=== PATIENT | female | born 1980 | race Caucasian/White ===

== ENCOUNTER 2018-12-30 06:31 | Day surgery (SDC) | payer OTHER, BC ==
[2018-12-30] MEDS ORDERED: CEFAZOLIN 2 GM/50 ML (PMX) 50 ML IVPB (07:00)
[2018-12-30] MEDS: SOD CHLORIDE 0.9% 1,000 ML IV (07:23)
[2018-12-30] MEDS ORDERED: MIDAZOLAM 1 MG/ML 2 ML INJ (07:48)
[2018-12-30] MEDS ORDERED: DESFLURANE 15 MIN (07:48)
[2018-12-30] MEDS ORDERED: FENTAnyl 50 MCG/ML VIAL (07:58)
[2018-12-30] MEDS ORDERED: CEFAZOLIN 1 GM INJ (08:00)
[2018-12-30] MEDS ORDERED: FAMOTIDINE 20 MG INJ (08:00)
[2018-12-30] MEDS ORDERED: LIDOCAINE 2% (SDV) 5 ML INJ (08:00)
[2018-12-30] MEDS ORDERED: ONDANSETRON 4 MG INJ (08:00)
[2018-12-30] MEDS ORDERED: METOCLOPRAMIDE 10 MG INJ (08:00)
[2018-12-30] MEDS ORDERED: SUCCINYLCHOLINE CHLORIDE 100 MG/5 ML SYG IV (08:00)
[2018-12-30] MEDS ORDERED: PROPOFOL 20 ML (08:00)
[2018-12-30] MEDS ORDERED: OXYCODONE/ACETAMINOPHEN (5/325) TAB PO ×2 (08:30)
[2018-12-30] MEDS ORDERED: hydrALAzine 20 MG INJ IV (08:30)
[2018-12-30] MEDS ORDERED: FENTAnyl 50 MCG/ML VIAL IV ×2 (08:30)
[2018-12-30] MEDS: LABETALOL HCL 20MG INJ IV (09:08)
[2018-12-30] MEDS: MEPERIDINE 25 MG INJ IV (09:08)
[2018-12-30] MEDS: ONDANSETRON 4 MG INJ IV (09:08)
[2018-12-30] MEDS: FENTAnyl 50 MCG/ML VIAL IV (09:09)
== END 2018-12-30 10:47 | disposition home or self-care (01) ==
LOC: SDS 06:31
DX: N92.1 Excessive and frequent menstruation with irregular cycle (principal); N84.0 Polyp of corpus uteri; D25.9 Leiomyoma of uterus, unspecified; R73.03 Prediabetes
CPT/HCPCS: 58563; 82962; 88305